=== PATIENT | male | born 1985 | race American Indian/Alaskan Native ===

== ENCOUNTER 2019-05-02 23:27 | Emergency (ER) | payer SELFPAY ==
[2019-05-02 23:38] VITALS: BP 146/84
--- NOTE | 2019-05-03 00:56 | Emergency Department Report ---
Chief Complaint: Abdominal Pain Stated Complaint: REDNESS BOTH EYES ABD PAIN Time Seen by Provider: 05/03/19 00:49 - HPI History of Present Illness: Mr. Simms is a very pleasant 33 yo male who presents to the ED for hepatitis panel. He was informed that he may have hepatitis B after donating plasma. I have referred Mr. Simms to outside clinic and outpatient physician. He does not have pain or discomfort at this time. Medical screening exam performed completed. No indication of life or limb threatening condition. - Exam Vital Signs: Vital Signs 05/02/19 23:35 Temperature 98.5 F Pulse Rate 67 Respiratory 18 Rate Blood Pressure 146/84 O2 Sat by Pulse 100 Oximetry MSE screening note: Focused history and physical exam performed. Due to findings the following was ordered: ED Disposition for MSE Clinical Impression: Encounter for medical screening examination Disposition: MED SCREENING EXAM-LEFT Is pt being admited?: No Does the pt Need Aspirin: No Condition: Stable Referrals: [facility] [Outside] - 3-5 Days [place] JAMES MD [Staff Physician] - 3-5 Days Forms: Work/School Release Form(ED)
== END 2019-05-03 01:06 | disposition left against medical advice (07) ==
LOC: ED 23:27
DX: Z11.59 Encounter for screening for other viral diseases (principal)